=== PATIENT | male | born 1995 | race Asian ===

== ENCOUNTER 2021-03-04 15:09 | Outpatient (REF) | payer OTHER, SELFPAY | END 2021-03-04 15:10 | disposition home or self-care (01) | LOC: HO.SCI 15:09 | DX: Z13.89 Encounter for screening for other disorder (principal) ==

== ENCOUNTER 2021-03-14 10:21 | Outpatient (REF) | payer OTHER, SELFPAY ==
--- NOTE | ~2021-03-14 | MR_ITS ---
EXAMINATION: MR BRAIN WITHOUT CONTRAST CLINICAL INFORMATION: Encephalopathy. COMPARISON: None. TECHNIQUE: Multiplanar, multisequence imaging of the brain was performed without contrast. FINDINGS: The inferior cerebellar vermis is mildly rotated posteriorly with a patulous appearance of the fourth ventricle. 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 Secondarily, the lateral ventricles have a parallel configuration with a very mild degree of colpocephaly. No cortical migrational abnormality identified. The frontal lobes symmetrically appear somewhat small in morphology with normal gyration. The extra-axial CSF space superior to the cerebellar vermis is prominent as well. No diffusion abnormalities are identified to suggest an acute infarct. No hydrocephalus. No mass effect or midline shift is seen. No brain parenchymal signal abnormality is noted. No space-occupying extra-axial fluid collections are seen. The brainstem and remainder of the cerebellum are normal. There are retention cysts in the maxillary sinuses, more so on the left side measuring up to 3 cm in size. The gradient refocused acquisition demonstrates no pathologic magnetic susceptibility artifact to indicate underlying acute or chronic blood products. The craniovertebral junction and marrow signal are normal. The major intracranial flow voids at the level of the [place] of [place] are preserved. The dural venous sinus flow voids are maintained. The mastoid air cells are well aerated. MR/MR head/brain wo con IMPRESSION: No acute process. 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 Symmetric somewhat small morphology of the frontal lobes with normal gyration and sulcation. 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
== END 2021-03-14 10:22 | disposition home or self-care (01) ==
LOC: HO.MRI 10:21
PROVIDERS: PCP Internal Medicine; Visit Provider Psychiatry & Neurology Neurology
DX: G93.40 Encephalopathy, unspecified (principal)
CPT/HCPCS: 70551